=== PATIENT | female | born 1960 | race American Indian/Alaskan Native ===

== ENCOUNTER 2016-10-26 14:03 | Outpatient (CLI) | payer MEDICAID ==
--- NOTE | 2016-10-26 15:15 | Mammography Report ---
BILATERAL MAMMOGRAM with CAD: HISTORY:Cancer screening. FINDINGS: The breasts are almost entirely fat (<25% glandular). No mass, distortion, suspicious calcification, or skin change is seen. IMPRESSION: Negative mammogram. There is no mammographic evidence of malignancy. RECOMMENDATION: Follow-up per ACS guidelines. BI-RADS CATEGORY: 1 = Negative ACR BI-RADS MAMMOGRAPHIC CODES: 0 = Needs additional imaging evaluation; 1 = Negative; 2 = Benign; 3 = Probably benign; 4 = Suspicious; 5 = Malignant; 6 = Known biopsy-proven malignancy COMMENT: 1. Dense breast tissue, i.e., adenosis, fibrocystic changes, etc., may obscure an underlying neoplasm. 2. Approximately 10% of cancers are not detected with mammography. 3. A negative mammography report should not delay biopsy if a clinically suspicious mass is present. COMMENT: Patient follow-up letters are generated in [employer].
== END 2016-10-26 14:04 | disposition home or self-care (01) ==
LOC: MAMMO 14:03
PROVIDERS: ATTEND Internal Medicine
DX: Z12.31 Encounter for screening mammogram for malignant neoplasm of breast (principal); M79.89 Other specified soft tissue disorders; I11.0 Hypertensive heart disease with heart failure; I50.9 Heart failure, unspecified; E11.9 Type 2 diabetes mellitus without complications; D64.9 Anemia, unspecified
CPT/HCPCS: 93971; G0202; 36415; 77067; 80053; 80061; 83036; 84443

== ENCOUNTER 2019-03-08 11:41 | Emergency (ER) | payer MEDICAID ==
[2019-03-08 12:09] VITALS: BP 149/77
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
--- NOTE | 2019-03-08 13:15 | XRay Report ---
XR knee 3V RT INDICATION / CLINICAL INFORMATION: pain. COMPARISON: None available. FINDINGS: There has been previous below the knee amputation. There is no aggressive appearing bone lesion or alexandre ne destruction in the residual right knee. There is a soft tissue gas or radiopaque foreign body. Signer Name: Elpidio Calhoun MD Signed: 03/08/2019 1:11 PM Workstation Name: [id number]
--- NOTE | 2019-03-08 13:18 | XRay Report ---
XR hip 2-3V RT INDICATION / CLINICAL INFORMATION: Right hip pain. COMPARISON: None available. FINDINGS: BONES/JOINT(S): No acute fracture or subluxation. Mild DJD of both hips. No aggressive appearing bone lesions. SOFT TISSUES: No significant abnormality. ADDITIONAL FINDINGS: None. Signer Name: Elpidio Calhoun MD Signed: 03/08/2019 1:13 PM Workstation Name: [id number]
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
[2019-03-08] MEDS ORDERED: traMADol 50 MG TAB PO ONE (16:27)
== END 2019-03-08 17:15 | disposition home or self-care (01) ==
LOC: ED 11:41
DX: M25.551 Pain in right hip (principal); I11.0 Hypertensive heart disease with heart failure; I50.9 Heart failure, unspecified; E11.9 Type 2 diabetes mellitus without complications; Z86.718 Personal history of other venous thrombosis and embolism; Z79.01 Long term (current) use of anticoagulants; Z86.711 Personal history of pulmonary embolism; Z90.710 Acquired absence of both cervix and uterus; Z79.899 Other long term (current) drug therapy